=== PATIENT | female | born 1995 | race Two or more races ===

== ENCOUNTER → 2016-12-04 | Outpatient (CLI) | payer BC, OTHER | LOC: BMCIMAGING 15:06 | PROVIDERS: ATTEND Physician Assistant | DX: T83.32XA Displacement of intrauterine contraceptive device, initial encounter (principal) ==

== ENCOUNTER 2017-01-18 02:12 | Emergency (ER) | payer BC, OTHER ==
[2017-01-18 02:19] VITALS: BP 112/89; PULSE 96; RESP 16; TEMP 98.6; O2SAT 97
[2017-01-18] MEDS ORDERED: SKIN ADHESIVE (DERMABOND) 1 EACH TP ONE (03:41)
--- NOTE | 2017-01-18 03:48 | EDPHY ---
H & P Stated Complaint: LAC ON BACK, FELL DOWN ON GLASS Time Seen by Provider: 01/18/17 02:33 - Personal History LMP (Females 10-55): 22-28 Days Ago Current Tetanus Diphtheria and Acellular Pertussis (TDAP): Yes - Medical/Surgical History Hx Asthma: No Hx Chronic Respiratory Disease: No Hx Diabetes: No Hx Cardiac Disease: No Hx Renal Disease: No Hx Cirrhosis: No Hx Alcoholism: No Hx HIV/AIDS: No Hx Splenectomy or Spleen Trauma: No Other PMH: none - Social History Smoking Status: Never smoked Constitutional: Initial Vital Signs Temperature (C) 37.0 C 01/18/17 02:14 Heart Rate 96 01/18/17 02:14 Respiratory Rate 16 01/18/17 02:14 Blood Pressure 112/89 H 01/18/17 02:14 O2 Sat (%) 97 01/18/17 02:14 O2 Delivery Mode Room Air Allergies/Adverse Reactions: No Known Allergies Allergy (Unverified 05/24/14 02:23) Home Medications: Medication Instructions Recorded NK [No Known Home Meds] 01/18/17 Medical Decision Making - Diagnostics Imaging Results: Lumbar x-ray one view shows no foreign body, interpreted by me, radiology interpretation is pending. Imaging: I viewed and interpreted images myself Procedures: LACERATION REPAIR Procedure: Laceration repair. Verbal consent was obtained from the patient. The linear 6 cm and 4 cm laceration on the left lower back was anesthetized using lidocaine with epinephrine. The wound was scrubbed, draped and explored to its base with a gloved finger. There were no deep structures involved. No tendon injury was identified. . The wound was repaired with horizontal mattress sutures, 4. 0 nylon and Dermabond. The wound repair was simple. The procedure was performed by myself. Differential Diagnosis: This is a 21-year-old female who presents after a fall which occurred just prior to arrival in the setting of alcohol use. She landed on her back and her back on which she thinks was glass. X-ray was obtained showing no foreign body. The wound was anesthetized eyes irrigated and explored, no foreign bodies were visible. Sutures were placed. She was discharged with instructions to return in 10 days for suture removal. Differential diagnosis includes superficial laceration, puncture wound, foreign body. Departure - Departure Disposition: Home, Routine, Self-Care Clinical Impression: Laceration of back Condition: Good Instructions: Care For Your Stitches (ED) Additional Instructions: Your stitches should be removed on January 28. You can come to the emergency room to have this performed. Please return for any redness, swelling, pain. Referrals: [facility] [Outside] - As per Instructions
== END 2017-01-18 04:01 | disposition home or self-care (01) ==
DX: S31.010A Laceration without foreign body of lower back and pelvis without penetration into retroperitoneum, initial encounter (principal); W18.02XA Striking against glass with subsequent fall, initial encounter